=== PATIENT | female | born 1950 | race Caucasian/White ===

== ENCOUNTER 2016-11-13 16:49 | Emergency (ER) | payer OTHER, MEDICAID ==
[~2016-11-13] VITALS: Ht 162.6 cm; Wt 63.0 kg
[2016-11-13 17:16] VITALS: BP 133/61
[2016-11-13 18:01] LABS: Basophils # (auto) 0 uL; Basophils % (auto) 0.6 % (0.0-2.0); Eosinophils # (auto) 0.1 uL; Hematocrit 33.7 % (36.0-46.0); Lymphocytes # (auto) 2.9 uL; Lymphocytes % (auto) 43.3 % (10.0-50.0); Mean Corpuscular Hemoglobin 29.9 pg (28.0-32.0); Mean Corpuscular Hgb Conc. 32.8 g/dL (32.0-36.0); Mean Corpuscular Volume 91.1 fL (80.0-100.0); Mean Platelet Volume 7.9 fL (7.4-10.4); Monocytes # (auto) 0.4 uL; Monocytes % (auto) 5.5 % (0.0-12.0); Neutrophils # (auto) 3.3 uL; Neutrophils % (auto) 49.6 % (37.0-80.0); Platelet Count (auto) 300 10^3/uL (140-450); Red Cell Distribution Width 13.5 % (11.6-16.0); White Blood Cell 6.7 10^3/uL (4.4-10.8)
[2016-11-13 18:33] LABS: Albumin 3.9 g/dL (3.4-5.0); Alkaline Phosphatase 83 U/L (45-117); Anion Gap 9 (5-15); Aspartate Aminotransferase 15 U/L (15-37); BUN/Creatinine Ratio 14.6; Bilirubin, Total 0.3 mg/dL (0.2-1.0); Blood Urea Nitrogen 12 mg/dL (7-18); Calcium 8.7 mg/dL (8.5-10.1); Carbon Dioxide 24 mmol/L (21-32); Chloride 106 mmol/L (98-107); GFR African American 89 mL/min; GFR Non-African American 74 mL/min; Glucose 139 mg/dL (74-106); Sodium 139 mmol/L (136-145); Total Protein 7.3 g/dL (6.4-8.2)
== END 2016-11-13 18:57 | disposition home or self-care (01) ==
LOC: ER 16:57
DX: R94.31 Abnormal electrocardiogram [ECG] [EKG] (principal); E78.5 Hyperlipidemia, unspecified; D64.9 Anemia, unspecified; E87.6 Hypokalemia; Z97.10 Presence of artificial limb (complete) (partial), unspecified
CPT/HCPCS: 36415; 71020; 80053; 84484; 85025; 93005

== ENCOUNTER 2017-06-02 09:25 | Day surgery (SDC) | payer OTHER, MEDICAID ==
[~2017-06-02] VITALS: Ht 165.1 cm; Wt 63.6 kg
[~2017-06-02 09:25] MED LIST: ATOR20TA PO; CETI1TAB36 PO; DICL50TA4 PO; FLUO40CA PO; HYDR200T36 PO; LINA145C PO; OME20T PO; TRAZ50TA2 PO
[2017-06-02] MEDS ORDERED: IODIXANOL 320MG/ML 100ML BTL IV ONE (11:16)
[2017-06-02] MEDS ORDERED: LIDOCAINE HCL 2 %PF INJ 10ML AMP IJ ONE ×2 (11:16→11:47)
[2017-06-02] MEDS ORDERED: fentaNYL CITRATE 100 MCG/2 ML VL ONE (11:42)
[2017-06-02] MEDS ORDERED: MIDAZOLAM HCL 1MG/1ML-2 ML VIAL ONE (11:43)
[2017-06-02] MEDS ORDERED: ANGIOMAX 250 MG VIAL IV ONE (11:45)
[2017-06-02] MEDS ORDERED: SODIUM CHL 0.9% 0 ML ONE (11:47)
[2017-06-02] MEDS ORDERED: SODIUM CHLORIDE 0.9% 1,000 ML IV SCH (12:46)
== END 2017-06-02 14:30 | disposition home or self-care (01) ==
LOC: CATH 09:25
PROVIDERS: ATTEND Internal Medicine Cardiovascular Disease
DX: I25.10 Atherosclerotic heart disease of native coronary artery without angina pectoris (principal); E78.5 Hyperlipidemia, unspecified; F32.9 Major depressive disorder, single episode, unspecified; M19.90 Unspecified osteoarthritis, unspecified site; E66.9 Obesity, unspecified
CPT/HCPCS: 93458; C1760; C1894; J1644; J2250; J3010; J7030; Q9967; 99152

== ENCOUNTER 2021-06-13 06:32 | Day surgery (SDC) | payer OTHER, MEDICAID ==
[~2021-06-13] VITALS: Ht 152.4 cm; Wt 61.7 kg
[~2021-06-13 06:32] MED LIST changes: +ASPI81CH74 PO; -HYDR200T36 PO; +LANS30CA57 PO; -OME20T PO
[2021-06-13] MEDS ORDERED: ANGIOMAX 250 MG VIAL IV ONE (07:24)
[2021-06-13] MEDS ORDERED: HEPARIN SODIUM (PORCINE) 5000 UNITS/ML 1ML VIAL ONE (07:24)
[2021-06-13] MEDS ORDERED: VERAPAMIL 2.5MG/ML INJ 2ML VIAL IV ONE (07:24)
[2021-06-13] MEDS ORDERED: MIDAZOLAM HCL 2MG/2ML 2ml VIAL (1mg/ml) ONE (07:25)
[2021-06-13] MEDS ORDERED: SODIUM CHL 0.9% 0 ML ONE (07:25)
[2021-06-13] MEDS ORDERED: fentaNYL CITRATE 100 MCG/2 ML VL ONE (07:25)
[2021-06-13] MEDS ORDERED: IODIXANOL 320MG/ML 100ML BTL IV ONE (07:31)
[2021-06-13] MEDS ORDERED: LIDOCAINE 2%HCL (LOCAL ANESTH.) INJ 10ml MDV ONE (07:32)
== END 2021-06-13 10:52 | disposition home or self-care (01) ==
LOC: CATH 06:32
PROVIDERS: ATTEND Internal Medicine Cardiovascular Disease
DX: R94.39 Abnormal result of other cardiovascular function study (principal); I25.10 Atherosclerotic heart disease of native coronary artery without angina pectoris; E78.5 Hyperlipidemia, unspecified; Z82.49 Family history of ischemic heart disease and other diseases of the circulatory system; Z79.82 Long term (current) use of aspirin; Z20.822 Contact with and (suspected) exposure to COVID-19
CPT/HCPCS: 93458; C1887; C1894; J1644; J2001; J2250; J3010; J7030; Q9967; U0003; 99152

== ENCOUNTER 2021-12-25 09:39 | Emergency (ER) | payer OTHER, MEDICAID ==
[~2021-12-25] VITALS: Ht 160 cm; Wt 65.0 kg
[2021-12-25 11:23] VITALS: BP 118/55
[2021-12-25 11:53] LABS: Basophils # (auto) 0 10 ^3/uL (0-0.2); Basophils % (auto) 0.4 % (0.0-2.0); Eosinophils # (auto) 0 10 ^3/uL (0-0.8); Eosinophils % (auto) 0.7 % (0.0-7.0); Hematocrit 33.5 % (36.0-46.0); Hemoglobin 10.9 g/dL (12.2-16.2); Lymphocytes # (auto) 1.2 10 ^3/uL (0.4-5.4); Lymphocytes % (auto) 18.3 % (10.0-50.0); Mean Corpuscular Hemoglobin 28.8 pg (28.0-32.0); Mean Corpuscular Hgb Conc. 32.6 g/dL (32.0-36.0); Mean Corpuscular Volume 88.3 fL (80.0-100.0); Monocytes # (auto) 0.5 10 ^3/uL (0-1.3); Monocytes % (auto) 7.3 % (0.0-12.0); Neutrophils # (auto) 4.8 10 ^3/uL (1.6-8.6); Neutrophils % (auto) 73.3 % (37.0-80.0); Red Cell Distribution Width 13.7 % (11.8-14.3); White Blood Cell 6.6 10^3/uL (4.4-10.8)
[2021-12-25 12:07] LABS: Albumin 3.7 g/dL (3.4-5.0); Calcium 8.2 mg/dL (8.5-10.1); Potassium 3.7 mmol/L (3.5-5.1)
[2021-12-25 12:17] LABS: Bilirubin, Total 0.4 mg/dL (0.2-1.0); CRP High Sensitivity 1.5 mg/dL (< 0.3); Total Protein 6.6 g/dL (6.4-8.2); Uric Acid 4.4 mg/dL (2.6-6.0)
[2021-12-25 12:18] LABS: BUN/Creatinine Ratio 21.4
[2021-12-25] MEDS ORDERED: TRIA0.02 TOP (12:45)
[2021-12-25] MEDS ORDERED: CEPH-510 PO (12:45)
== END 2021-12-25 12:51 | disposition home or self-care (01) ==
LOC: ER 09:39
DX: L23.9 Allergic contact dermatitis, unspecified cause (principal); R22.41 Localized swelling, mass and lump, right lower limb; E78.5 Hyperlipidemia, unspecified; Z90.710 Acquired absence of both cervix and uterus; Z88.6 Allergy status to analgesic agent
CPT/HCPCS: 36415; 73610; 73630; 80053; 83605; 84550; 85025; 86141; 93971

== ENCOUNTER 2022-11-01 11:45 | Emergency (ER) | payer OTHER, MEDICAID ==
[~2022-11-01] VITALS: Ht 160 cm; Wt 62.0 kg
[~2022-11-01 11:45] MED LIST changes: +CEPH-510 PO; +TRAZ-227 PO; -TRAZ50TA2 PO; +TRIA0.02 TOP
[2022-11-01 12:07] VITALS: BP 134/50; PULSE 79; RESP 16; TEMP 97.7; O2SAT 96
[2022-11-01] MEDS ORDERED: NAP500T PO (14:40)
== END 2022-11-01 14:56 | disposition home or self-care (01) ==
LOC: ER 11:45
DX: S46.912A Strain of unspecified muscle, fascia and tendon at shoulder and upper arm level, left arm, initial encounter (principal); F32.9 Major depressive disorder, single episode, unspecified; K21.9 Gastro-esophageal reflux disease without esophagitis; E78.5 Hyperlipidemia, unspecified; Z79.899 Other long term (current) drug therapy; Z90.710 Acquired absence of both cervix and uterus; W01.0XXA Fall on same level from slipping, tripping and stumbling without subsequent striking against object, initial encounter; Y93.89 Activity, other specified; Y92.89 Other specified places as the place of occurrence of the external cause; Y99.8 Other external cause status
CPT/HCPCS: 73030; 73060